=== PATIENT | female | born 1950 | race Caucasian/White ===

== ENCOUNTER 2023-07-30 10:45 | Emergency (ER) | payer MEDICARE, SELFPAY ==
[2023-07-30 10:54] VITALS: BP 154/91; PULSE 92; RESP 18; TEMP 36.7; O2SAT 97; BMI 27.7
--- NOTE | 2023-07-30 11:30 | ED_ITS ---
HPI - General Adult General Date Seen: 07/30/23 Chief complaint: Vaginal Bleeding Stated complaint: Vaginal bleeding / discomfort Time Seen by Provider: 07/30/23 11:04 Source: patient and family Mode of arrival: ambulatory Limitations: no limitations History of Present Illness HPI narrative: Patient is a 72-year-old woman who is here with her brother and [id number]. Recent medical and social history is complex. She had apparently been living in a home that was condemned secondary to hoarding behavior. She was brought to the hospital because she was found outside wandering around, then noted to have vaginal bleeding, diagnosed with vulvar cancer with a biopsy done at [facility] on July 20. She is not able to live in [place] so her family brought her back here to live with them. They are trying to figure out how to secure treatment for her. She has had considerable itching of the vulva, which they say they were given Lanacaine ointment as well as Aquaphor ointment but this does not seem to help. She has not tried anything orally. They also note that the skin on her left ear has been somewhat dry and itchy and are wondering what to do about that. She has a history of breast cancer, denies other significant medical history. Related Data Previous Rx's Medication Instructions Recorded gabapentin 100 mg capsule 100 mg PO TID #30 caps 07/30/23 Review of Systems Status of ROS: Reports: 6 or more systems reviewed and unremarkable except as noted in History and below [facility] Social History Smoking Status: Never smoker Do you use any of these nicotine containing products: None Second hand tobacco smoke exposure: No How often do you have a drink containing alcohol: never How often do you have six or more drinks on one occasion: Never AUDIT-C Alcohol total score: 0 Non-prescribed substance use: denies use service: No Exam Narrative: Exam Narrative: Vital signs reviewed In general, alert, well-appearing pleasant woman. Head: Normocephalic atraumatic. Eyes: Sclera anicteric. ENT: Mucous membranes are moist. Skin on the left ear is slightly dry and scaly, TM normal. Heart: Regular rate and rhythm. Abdomen: Soft nontender. Pelvic: Deferred skin: Warm dry well perfused Neurologic: She is alert, conversant, speech fluent. Affect: Normal. Const: Vital Signs, click to edit/add: Vital Signs - 24 hr 07/30/23 10:54 Temperature 98.0 F Pulse Rate [Left P ulse Oximeter] 92 Respiratory Rate 18 Blood Pressure [Le ft Upper Arm] 154/91 H Pulse Oximetry 97 Oxygen Delivery Me thod Room Air Documenting provider has reviewed patient's vital signs: yes Course Course ED Course: Case discussed briefly with Dr. Graham, who recommends follow-up with the primary care clinic and referral to [facility]c. With regard to her itching, have suggested that she try taking Zyrtec once or twice a day. I will prescribe some gabapentin to see if that provides any relief. Discussed that I do not know whether either of those will help and if they do not I would continue them. For the ear, she says she has already tried using a regular ointment on it so I suggested using an antifungal for 2-3 weeks such as Lotrimin. Okay to add hydrocortisone for the itching for up to 2 weeks. Reviewed with him that they will need to call the clinic this afternoon to arrange for a follow-up appointment. Vital Signs Vital signs: Initial Vital Signs Temperature 98.0 F 07/30/23 10:54 Temperature Source Temporal Artery Scan 07/30/23 10:54 Pulse Rate 92 07/30/23 10:54 Pulse Rhythm Regular 07/30/23 10:54 Pulse Strength 3+ Normal 07/30/23 10:54 Respiratory Rate 18 07/30/23 10:54 Blood Pressure 154/91 H 07/30/23 10:54 Blood Pressure Mean 112 H 07/30/23 10:54 Blood Pressure Position Sitting 07/30/23 10:54 Pulse Oximetry 97 07/30/23 10:54 Oxygen Delivery Method Room Air 07/30/23 10:54 Vital Signs Temperature 98.0 F 07/30/23 10:54 Pulse Rate 92 07/30/23 10:54 Respiratory Rate 18 07/30/23 10:54 Blood Pressure 154/91 H 07/30/23 10:54 Pulse Oximetry 97 07/30/23 10:54 Oxygen Delivery Method Room Air 07/30/23 10:54 Temperature 98.0 F 07/30/23 10:54 Pulse Rate 92 07/30/23 10:54 Respiratory Rate 18 07/30/23 10:54 Blood Pressure 154/91 H 07/30/23 10:54 Pulse Oximetry 97 07/30/23 10:54 Oxygen Delivery Method Room Air 07/30/23 10:54 Discharge Plan Discharge Clinical Impression: Vulva cancer Patient Disposition: Home, Self-Care Condition: Stable Additional Instructions: I would recommend Zyrtec once or twice a day trial for itching. I will prescribe gabapentin and if needed you can try that as well. Please follow-up with the primary care clinic, phone number [phone]. You need a referral to inhalation therapy aide Onc, which our OB Gy[facility] doctor says can be best secured through the primary care clinic. For your ear, Lotrimin as discussed. Be aware that it can take 2-3 weeks for symptoms to improve. Okay to add a topical steroid such as hydrocortisone for up to 2 weeks. Do not continue beyond 2 weeks. Prescriptions: New gabapentin 100 mg capsule 100 mg PO TID Qty: 30 2RF Stand Alone Forms: [email or web address] Info Instructions
== END 2023-07-30 12:04 | disposition home or self-care (01) ==
PROVIDERS: Emergency Provider Emergency Medicine
DX: C51.9 Malignant neoplasm of vulva, unspecified (principal)
CPT/HCPCS: 99283